=== PATIENT | female | born 1995 | race Caucasian/White ===

== ENCOUNTER 2019-04-05 22:13 | Inpatient (IN) | payer MEDICAID ==
[~2019-04-05] VITALS: Ht 152.4 cm; Wt 61.7 kg
[2019-04-05 22:04] VITALS: BP 106/56; PULSE 75; RESP 18
[2019-04-05 22:15] VITALS: Ht 152.4 cm; Wt 61.7 kg
[2019-04-05] MEDS ORDERED: PREN-93 PO (22:17)
[2019-04-05] MEDS ORDERED: TERBUTALINE 1 ML ONE (23:57)
[2019-04-06] MEDS ORDERED: LACTATED RINGER'S 1,000 ML IV ONE
[2019-04-06] MEDS ORDERED: LACTATED RINGER'S 1,000 ML IV PRN
[2019-04-06] MEDS: TERBUTALINE 1 MG/ML INJ SC PRN ×2 (00:20→02:14)
[2019-04-06] MEDS ORDERED: NIFEdipine 10 MG CAP PO ONE ×2 (02:00→04:30)
[2019-04-06] MEDS ORDERED: ACETAMINOPHEN 325 MG TAB PO PRN (04:30)
[2019-04-06] MEDS: LACTATED RINGER'S 1,000 ML IV SCH ×3 (05:01→22:43)
[2019-04-06] MEDS: BETAMET NA PHOS/AC(6 MG/ML) 2 ML INJ SYG IM SCH (06:04)
[2019-04-06] MEDS: DOCUSATE SODIUM 100 MG CAP PO SCH (09:28)
[2019-04-06] MEDS: PRENATAL VITAMIN PO SCH (09:29)
[2019-04-06] MEDS: NIFEdipine 10 MG CAP PO SCH ×3 (10:33→17:51)
--- NOTE | 2019-04-06 14:03 | CONS ---
Assessment/Plan Assessment/Plan Assessment/Plan (Daily) I have explained to the mother about problems related to prematurity, low birthweight, survival greater than 98%, long-term risk for hearing and neurodevelopmental problems in view of prematurity and low birthweight, respiratory distress, oxygen therapy, respiratory support as clinically indicated, apnea of prematurity, jaundice, phototherapy, feeding problems with intolerance, necrotizing enterocolitis, gastroesophageal reflux, general treatment plan and general procedures done in NICU and answered mother's questions and addressed her concerns. I also explained her the importance of breastmilk in premature baby nutrition. Thank you very much for allowing me to take part in the care of this patient, will follow the mom and the baby as needed I have spent 25 to 30 minutes in reviewing the mother's chart, coordinating the care with ancillary personnel, talking to the mother and preparing the consult note. Most of the time spent in talking to the mother and answering her questions about premature babies in NICU. Consultation Date/Type/Reason Admit Date/Time Apr 06, 2019 at 04:08 Date of Consultation: Apr 06, 2019 Type of Consult consult in view of labor at 34 and 3/7 weeks Reason for Consultation labor at 34 and 3/7 weeks. Mom is 23-year-old, 4, para 1, 2, and is on Procardia for labor and given 1 dose of betamethasone so far with the second 1 to be given soon. She has intermittent contractions. EDC 05/14/2019. Gestational age by dates is 34 and 4/7 weeks. Date/Time of Note DATE: 04/06/19 TIME: 13:57 Past Medical History Home Meds Reported Medications Vit No.124/Iron/FA ( Vitamin Tablet) 1 Each Tablet, 1 EACH PO, TAB 04/05/19 Medications Current Medications Terbutaline Sulfate (Brethine) 0.25 mg PRN PRN SC CONTRACTIONS Last administered on 04/06/19at 02:14; Admin Dose 0.25 MG; Start 04/06/19 at 00:00 Lactated Ringer's 1,000 ml @ 125 mls/hr Q8H IV Last administered on 04/06/19at 05:01; Admin Dose 125 MLS/HR; Start 04/06/19 at 04:13 Betamethasone Acet/Betameth SodPhos (Celestone Soluspan) 12 mg Q24H IM Last administered on 04/06/19at 06:04; Admin Dose 12 MG; Start 04/06/19 at 06:00; Stop 04/07/19 at 06:01 Prenat Multivit/ [place]/Iron/Folic Ac () 1 tab DAILY PO Last administered on 04/06/19at 09:29; Admin Dose 1 TAB; Start 04/06/19 at 09:00 Docusate Sodium (Colace) 100 mg DAILY PO Last administered on 04/06/19at 09:28; Admin Dose 100 MG; Start 04/06/19 at 09:00 Acetaminophen (Tylenol Tab) 650 mg Q4H PRN PO .PAIN OR TEMP; Start 04/06/19 at 04:30 Nifedipine (Procardia) 20 mg Q6 PO ; Start 04/06/19 at 18:00 Allergies: Coded Allergies: No Known Allergy (Unverified , 04/05/19) Social History Smoking Status: Never smoker Exam/Review of Systems Exam Vitals Vital Signs Date Temp Pulse Resp B/P (MAP) Pulse Ox O2 O2 Flow FiO2 Time Delivery Rate 04/05/19 98.0 75 18 106/56 Room Air 22:04 (73) Intake and Output 04/05/19 04/05/19 04/06/19 1515:00 23:00 07:00 IntakeIntake Total 2000 ml OutputOutput Total 400 ml BalanceBalance 1600 ml Results Result Diagram: 04/06/19 0505 Results 24hrs Laboratory Tests Test 04/05/19 22:30 04/06/19 05:05 04/06/19 07:08 Urine Color YELLOW Urine Clarity CLEAR Urine pH 6.0 Urine Specific [place] 1.018 Urine Ketones NEGATIVE Urine Nitrite NEGATIVE Urine Bilirubin NEGATIVE Urine Urobilinogen NEGATIVE Urine Leukocyte Esterase NEGATIVE Urine Hemoglobin NEGATIVE Urine Glucose NEGATIVE Urine Total Protein NEGATIVE White Blood Count 9.1 Red Blood Count 3.65 L Hemoglobin 9.3 L Hematocrit 29.3 L Mean Corpuscular Volume 80.3 L Mean Corpuscular Hemoglobin 25.5 L Mean Corpuscular 31.7 L Hemoglobin Concent Red Cell Distribution Width 15.5 H Platelet Count 161 Mean Platelet Volume 11.3 H Immature Granulocytes % 0.800 H Neutrophils % 70.4 Lymphocytes % 22.2 Monocytes % 6.0 Eosinophils % 0.3 Basophils % 0.3 Nucleated Red Blood Cells % 0.0 Immature Granulocytes # 0.070 H Neutrophils # 6.4 Lymphocytes # 2.0 Monocytes # 0.5 Eosinophils # 0.0 Basophils # 0.0 Nucleated Red Blood Cells # 0.0 Lab Scanned Report REFERENCE LAB Medications Medication Current Medications Terbutaline Sulfate (Brethine) 0.25 mg PRN PRN SC CONTRACTIONS Last administ ered on 04/06/19at 02:14; Admin Dose 0.25 MG; Start 04/06/19 at 00:00 Lactated Ringer's 1,000 ml @ 125 mls/hr Q8H IV Last administered on 04/06/19at 05:01; Admin Dose 125 MLS/HR; Start 04/06/19 at 04:13 Betamethasone Acet/Betameth SodPhos (Celestone Soluspan) 12 mg Q24H IM Last administered on 04/06/19at 06:04; Admin Dose 12 MG; Start 04/06/19 at 06:00; Stop 04/07/19 at 06:01 Prenat Multivit/ [place]/Iron/Folic Ac () 1 tab DAILY PO Last administered on 04/06/19at 09:29; Admin Dose 1 TAB; Start 04/06/19 at 09:00 Docusate Sodium (Colace) 100 mg DAILY PO Last administered on 04/06/19at 09:28; Admin Dose 100 MG; Start 04/06/19 at 09:00 Acetaminophen (Tylenol Tab) 650 mg Q4H PRN PO .PAIN OR TEMP; Start 04/06/19 at 04:30 Nifedipine (Procardia) 20 mg Q6 PO ; Start 04/06/19 at 18:00 ROBERT ANDREWS MD Apr 06, 2019 14:03
--- NOTE | 2019-04-06 15:27 | HP ---
Date/Time of Note Date/Time of Note DATE: 04/06/19 TIME: 15:22 OB - History Hx of Present Free Text/Dictation 23 years old -1-1-2 with single intrauterine at 34 weeks and 4 days with a BLANQUITA of 05/14/2019 complaining of uterine contractions. She has a history of delivery at 36 weeks in previous . She initially observed in triage, IV fluid and 1 dose of terbutaline given. She continued to have uterine contractions. She states good movement. She denies nausea, vomiting, shortness of breath, chest pain, headache, visual changes, vaginal bleeding or LOF. Chief Complaint: Uterine contractions Estimated Due Date: May 14, 2019 : 4 Para: 2 Spontaneous : 1 Therapeutic : 0 Care: Good Care Medical Complications: None Past Family/Social History * Past Medical, Surgical, Family and Obstetric Histories reviewed from [facility] art. Blood Type: O+ Rubella: immune RPR/VDRL: Negative HBsAG: Negative OB Admission Exam Vital Signs Vital Signs Vital Signs Date Temp Pulse Resp B/P (MAP) Pulse Ox O2 O2 Flow FiO2 Time Delivery Rate 04/05/19 98.0 75 18 106/56 Room Air 22:04 (73) Physical Exam HEENT: WNL Heart: Rhythm Normal Lungs: Clear Abdomen: WNL Extremities: Normal Reflexes: Normal Cervical Dilatation: 1cm Effacement: 50% Station: -2 Membranes: Intact Heart Rate: 130's Accelerations: Accelerations Present Decelerations: No Decelerations Varibility: Moderate Contractions on Admission: < 5 Minutes Apart Intensity: Mild Last 72 hours Lab Results CBC & BMP 04/06/19 05:05 OB Assessment/Plan Other plan: 23 years old -1-1-2 with single intrauterine at 34 weeks and 4 days with threatened PTL -FHR: No sign of metabolic acidosis- Category I -Continuous EFM, toco -CBC, blood type and screen as noted above -Urinalysis and urine culture -Rectovaginal-GBS culture -Procardia 20 mg every 6 hours p.o. -Betamethasone 12 mg IM daily x2 -Please see the orders -O+/Rubella: Immune -Neonatology consult Plan of care discussed in detail with patient. She expressed understanding. All of her questions answered. JOSE MIGUEL DIAZ Apr 06, 2019 15:27
[2019-04-07] MEDS: NIFEdipine 10 MG CAP PO SCH ×4 (00:46→17:57)
[2019-04-07] MEDS: BETAMET NA PHOS/AC(6 MG/ML) 2 ML INJ SYG IM SCH (05:51)
[2019-04-07] MEDS: LACTATED RINGER'S 1,000 ML IV SCH ×3 (05:57→17:08)
[2019-04-07] MEDS ORDERED: LACTATED RINGER'S 1,000 ML IV ONE (08:30)
[2019-04-07] MEDS: DOCUSATE SODIUM 100 MG CAP PO SCH (09:04)
[2019-04-07] MEDS: PRENATAL VITAMIN PO SCH (09:04)
--- NOTE | 2019-04-07 14:47 | QN ---
Documentation Comment I was called today by RN regarding patient have contractions every 4 to 5 minutes. Apparently last night nifedipine dose was not given due to blood pressure was running low. Patient was advised to have IV fluid bolus and that seemed to help with her contractions. Patient reports had only 2 contractions this morning after she received full fluid bolus. She denies any leaking of fluid, vaginal bleeding or decreased movement. Denies any other complaint.She denies any urinary symptoms Abdomen: Soft, gravid, fundal height consider gestational age, no tenderness, no rebound tenderness, no guarding or rigidity NST: Category 1 Occasional rare contraction noted on the monitor Previous contractions were more frequent. Patient feels improvement. Blood pressures now in the range of 100 through 40s. UA pending Assessment: IUP at 34 weeks and 5 days History of labor status post terbutaline and was on nifedipine orally. Had contractions more frequent after missed last night nifedipine. UA pending. Cannot rule out UTI Follow-up with UA and urine culture Continue fluid hydration Expectant management NST every shift ROOPA LANDA MD Apr 07, 2019 14:47
[2019-04-08] MEDS: NIFEdipine 10 MG CAP PO SCH ×4 (00:13→11:32)
[2019-04-08] MEDS: LACTATED RINGER'S 1,000 ML IV SCH ×2 (02:05→13:57)
[2019-04-08] MEDS: PRENATAL VITAMIN PO SCH (09:13)
[2019-04-08] MEDS: DOCUSATE SODIUM 100 MG CAP PO SCH (09:13)
--- NOTE | 2019-04-08 13:49 | PD.PPDC ---
[employer] Discharge Instruction Diagnosis [id number] Final Diagnosis: Ibxaq8y IUP 34w5d PTL borderline oligohydramnious Condition [id number] Patient Condition: [id number] Good Diet [id number] Diet: [id number] Resume Regular Diet Activity/Restrictions [id number] Activity: [id number] Bedrest [id number] Restrictions: Gnctn0s No Exercising No Lifting No Driving Minimize Walking Minimize Stair-climbing No Sexual Activity Nothing in the Vagina No [place] No Tampons, douche Follow-up Follow-up with Physician: 1, Week/Weeks Return to clinic for Comment: RTH prn with routine labor instructions AMIE FARRAR MD Apr 08, 2019 13:49
--- NOTE | 2019-04-08 13:56 | DS ---
Date/Time of Note Date/Time of Note DATE: 04/08/19 TIME: 13:53 Obstetrical Discharge Record Final Diagnosis Final Diagnosis: not delivered Other Final Diagnosis PTL resolved IUP 3w5d borderline oligohydramnious will repeat prior to be discharged Complications Labor Augmentation: No Induction: No Rupture of Membranes: No Condition on Discharge Physical Assessment Last Vitals: vss afebrile Voiding: Yes Bowel Movement: Yes Breast: Soft, non-tender Fundus: Other (, no uc's) Abdomen and Incision: EFM no significant uterine activities Episiotomy: n/a Calf Tenderness: No Patient Condition: Stable AMIE FARRAR MD Apr 08, 2019 13:56
== END 2019-04-08 15:25 | disposition home or self-care (01) | DRG 833 ==
LOC: OBT 22:13 → L-D 22:14 → OBT 04-06 04:08 → L-D 04-06 04:08 → PP1 04-06 05:22
PROVIDERS: ADMIT Obstetrics & Gynecology; ATTEND Obstetrics & Gynecology
DX: O60.03 Preterm labor without delivery, third trimester (principal); Z3A.34 34 weeks gestation of pregnancy
CPT/HCPCS: 36415; 76815; 76818; 81003; 85025; 86850; 86900; 86901; 87081; 96360; 96361; 96372; G0463; J0702; J3105; J7120

== ENCOUNTER 2019-04-21 04:15 | Outpatient (CLI) | payer MEDICAID ==
[~2019-04-21] VITALS: Ht 152.4 cm; Wt 62.1 kg
[~2019-04-21 04:15] MED LIST: PREN-93 PO
[2019-04-21] MEDS ORDERED: TERBUTALINE 1 MG/ML INJ SC ONE (08:30)
[2019-04-21] MEDS ORDERED: TERBUTALINE 1 ML ONE (08:31)
[2019-04-21] MEDS ORDERED: LACTATED RINGER'S 1,000 ML IV SCH (09:00)
--- NOTE | 2019-04-21 10:23 | TRIAGE ---
OB Triage Datetime Report Generated by CPN: 04/21/2019 10:23 Datetime: 04/21/2019 09:46 Labor Evaluation Frequency: 8-15 Monitor Mode: External Duration (sec)2399: 50-70 Quality: Mild Pattern: Normal: <= 5 Contractions in 10 Minutes Resting Tone [place]: Relaxed Heart Rate FHR Baseline Rate: 125 Monitor Mode: External US Variability: Moderate 6-25 bpm Accelerations: 10X10 Decelerations: None Category: Category I Pain Assessment Pain Scale: 1 Pain Presence: Intermittent Pain Type: Cramping Pain Location: Abdomen Pain Goal: 3 Pain Relief Measures: Comfort Measures Pain Assessment Comments: states barely feels uc's Datetime: 04/21/2019 09:27 Stage of : OB Triage Datetime: 04/21/2019 08:42 Stage of : OB Triage Datetime: 04/21/2019 08:26 Stage of : OB Triage Datetime: 04/21/2019 08:22 Labor Evaluation Frequency: 6-7 Monitor Mode: External Duration (sec)2399: 60-80 Quality: Mild Pattern: Normal: <= 5 Contractions in 10 Minutes Resting Tone [place]: Relaxed Heart Rate FHR Baseline Rate: 125 Monitor Mode: External US Variability: Moderate 6-25 bpm Accelerations: 10X10 Decelerations: None Category: Category I Pain Assessment Pain Scale: 4 Pain Presence: Intermittent Pain Type: Cramping Pain Location: Abdomen Pain Goal: 3 Pain Relief Measures: Comfort Measures Datetime: 04/21/2019 06:05 Labor Evaluation Frequency: 4-6 Monitor Mode: External Duration (sec)2399: 60-90 Quality: Mild Pattern: Normal: <= 5 Contractions in 10 Minutes Resting Tone [place]: Relaxed Heart Rate FHR Baseline Rate: 125 Monitor Mode: External US Variability: Moderate 6-25 bpm Accelerations: 15X15 Decelerations: None Category: Category I Datetime: 04/21/2019 05:10 Labor Evaluation Frequency: 3-6 Monitor Mode: External Duration (sec)2399: 50-90 Quality: Moderate Pattern: Normal: <= 5 Contractions in 10 Minutes Resting Tone [place]: Relaxed Heart Rate FHR Baseline Rate: 135 Monitor Mode: External US Variability: Moderate 6-25 bpm Accelerations: 15X15 Decelerations: Late; Variable Category: Category II Datetime: 04/21/2019 04:50 Vaginal Exam Dilatation (cms): 1.0 Effacement (%): 50 Station: -3 Exam By: JUAN DIEGO Mcdonald RN Membrane Status: Intact Cervix, Consistency: Soft Cervix, Position: Posterior Datetime: 04/21/2019 04:46 Time of Arrival: 04/21/2019 04:10 EGA: 36.5 Arrived By: Wheelchair Arrived From: Home Chief Complaint: c/o uc's and yellow/white vaginal discharge Movement: Present Contractions: Regular Time Contractions Began: 04/20/2019 09:00 Contractions: 5 minutes apart Rupture of Membranes: Denies Vaginal Bleeding: None Vaginal Discharge: Present Recent Sexual Intercouse: Denies Abdominal Trauma: Not Applicable Patient Complaints: Contractions Time Provider Notified: 04/21/2019 04:45 Provider Notified: ARDALAN Initial Plan: EFM, SVE, CALL MD Datetime: 04/21/2019 04:45 Stage of : OB Triage Datetime: 04/21/2019 04:35 Stage of : OB Triage Maternal Assessment Level of Consciousness: Keenly Alert, Responsive DTR's/Clonus: DTRs 2+; No Clonus Headache: Denies Blurred Vision: No Respiratory Effort: Unlabored; Regular Rhythm; Equal Expansion Breath Sounds, Left: Clear and Equal Breath Sounds, Right: Clear and Equal Nausea/Vomiting: Denies RUQ Epigastric Pain: Denies Facial Edema: None Temperature Route: Oral Fall Risk Assessment History of Falling: (0) No Secondary Diagnosis: (0) No Ambulatory Aid: (0) Bedrest/Nurse Assist IV Therapy: (0) No Gait: (0) Normal/Bedrest/Immobile Mental Status: (0) Oriented to Own Ability Fall Score: 0 Fall Risk Score Definition: No Risk: No action required Pain Assessment Pain Scale: 5 Pain Presence: Intermittent Pain Type: Contraction Pain Location: Abdomen; Back Datetime: 04/21/2019 04:34 Stage of : OB Triage Monitor Mode: External Monitor Mode: External US Datetime: 04/08/2019 15:25 Stage of : Antepartum Pain Presence: None/Denies Datetime: 04/08/2019 14:03 Stage of : Antepartum Maternal Assessment Level of Consciousness: Keenly Alert, Responsive Headache: Denies Nausea/Vomiting: Denies RUQ Epigastric Pain: Denies Pain Presence: None/Denies Membrane Status: Intact Vaginal Bleeding: None Datetime: 04/08/2019 11:54 Resting Tone [place]: Relaxed Heart Rate FHR Baseline Rate: 135 Monitor Mode: External US Variability: Moderate 6-25 bpm Accelerations: 15X15 Decelerations: None Comments: dr. doyle the laborist rvwd. strip from yesterday to current. orders bpp w/ ana, and if wnl d/c home w/ prescription for procardia Membrane Status: Intact Vaginal Bleeding: None Datetime: 04/08/2019 11:00 Stage of : Antepartum Maternal Assessment Level of Consciousness: Keenly Alert, Responsive Headache: Denies Nausea/Vomiting: Denies RUQ Epigastric Pain: Denies Labor Evaluation Frequency: 0/hr Monitor Mode: External Heart Rate FHR Baseline Rate: 140 Monitor Mode: External US Variability: Moderate 6-25 bpm Accelerations: 15X15 Decelerations: None Pain Assessment Pain Scale: 0 Pain Presence: None/Denies Membrane Status: Intact Vaginal Bleeding: None Datetime: 04/08/2019 10:53 Stage of : Antepartum Maternal Assessment Level of Consciousness: Keenly Alert, Responsive Headache: Denies Blurred Vision: No Respiratory Effort: Unlabored Nausea/Vomiting: Denies RUQ Epigastric Pain: Denies Pain Presence: None/Denies Membrane Status: Intact Vaginal Bleeding: None Datetime: 04/08/2019 10:13 Stage of : Antepartum Maternal Assessment Level of Consciousness: Keenly Alert, Responsive Headache: Denies Nausea/Vomiting: Denies RUQ Epigastric Pain: Denies Labor Evaluation Frequency: occassional Monitor Mode: External Duration (sec)2399: 50 Quality: Mild Resting Tone [place]: Relaxed Heart Rate FHR Baseline Rate: 140 Monitor Mode: External US Variability: Moderate 6-25 bpm Accelerations: 15X15 Decelerations: None Pain Assessment Pain Scale: 0 Pain Presence: None/Denies Membrane Status: Intact Vaginal Bleeding: None Datetime: 04/08/2019 09:25 Labor Evaluation Frequency: 0/hr Monitor Mode: External Heart Rate FHR Baseline Rate: 135 Monitor Mode: External US Variability: Moderate 6-25 bpm Accelerations: 15X15 Decelerations: None Datetime: 04/08/2019 09:12 Stage of : Antepartum Datetime: 04/08/2019 09:10 Monitor Mode: External Resting Tone [place]: Relaxed Monitor Mode: External US Pain Presence: None/Denies Datetime: 04/08/2019 08:46 Stage of : Antepartum Labor Evaluation Frequency: 0/hr Monitor Mode: External Heart Rate FHR Baseline Rate: 140 Monitor Mode: External US Variability: Moderate 6-25 bpm Accelerations: 15X15 Decelerations: None Datetime: 04/08/2019 07:43 Maternal Assessment Level of Consciousness: Keenly Alert, Responsive DTR's/Clonus: DTRs 2+ Headache: Denies Blurred Vision: No Respiratory Effort: Unlabored Breath Sounds, Left: Clear and Equal Breath Sounds, Right: Clear and Equal Nausea/Vomiting: Denies RUQ Epigastric Pain: Denies Quality: Mild Resting Tone [place]: Relaxed Pain Assessment Pain Scale: 0 Pain Presence: Intermittent Pain Type: Contraction Pain Location: Abdomen Datetime: 04/08/2019 07:27 Stage of : Antepartum Temperature Route: Oral Resting Tone [place]: Relaxed Membrane Status: Intact (Annotations: pt. denies lof, srom, or bleedinfg at this time) Datetime: 04/08/2019 07:25 Maternal Assessment Level of Consciousness: Keenly Alert, Responsive Headache: Denies Blurred Vision: No Nausea/Vomiting: Denies RUQ Epigastric Pain: Denies Resting Tone [place]: Relaxed Datetime: 04/08/2019 07:24 Stage of : Antepartum Datetime: 04/08/2019 06:51 Labor Evaluation Frequency: NONE Monitor Mode: External Resting Tone [place]: Relaxed Contraction Comments: PT DENIES FEELING UC'S Heart Rate FHR Baseline Rate: 130 Monitor Mode: External US Variability: Moderate 6-25 bpm Accelerations: 15X15 Decelerations: None Category: Category I Datetime: 04/08/2019 06:23 Vaginal Exam Dilatation (cms): 0.5 Effacement (%): 40 Station: -3 Exam By: JENNY Cervix, Consistency: Moderate Cervix, Position: Posterior Datetime: 04/08/2019 06:05 Stage of : Antepartum Datetime: 04/08/2019 06:00 Labor Evaluation Frequency: X7 Monitor Mode: External Duration (sec)2399: 60-80 Quality: Mild Resting Tone [place]: Relaxed Contraction Comments: PT DEINES FEELING ANY UC'S Heart Rate FHR Baseline Rate: 130 Monitor Mode: External US Variability: Moderate 6-25 bpm Accelerations: 15X15 Decelerations: Late Category: Category II Pain Presence: None/Denies Pain Type: N/A Datetime: 04/08/2019 05:00 Labor Evaluation Frequency: X7 Monitor Mode: External Duration (sec)2399: 40-70 Quality: Mild Resting Tone [place]: Relaxed Heart Rate FHR Baseline Rate: 125 Monitor Mode: External US Variability: Moderate 6-25 bpm Accelerations: 15X15 Decelerations: None Category: Category I Pain Presence: None/Denies Pain Type: N/A Datetime: 04/08/2019 04:02 Pain Presence: None/Denies Pain Type: N/A Datetime: 04/08/2019 04:00 Labor Evaluation Frequency: X10 Monitor Mode: External Duration (sec)2399: 50-100 Quality: Mild Resting Tone [place]: Relaxed Contraction Comments: PT DENIES FEELING UC'S Accelerations: 10X10 Pain Presence: None/Denies Pain Type: N/A Datetime: 04/08/2019 03:00 Labor Evaluation Frequency: X5 Monitor Mode: External Duration (sec)2399: 60-80 Quality: Mild Resting Tone [place]: Relaxed Heart Rate FHR Baseline Rate: 130 Monitor Mode: External US Variability: Moderate 6-25 bpm Accelerations: 15X15 Decelerations: None Category: Category I Pain Presence: None/Denies Pain Type: N/A Pain Assessment Comments: PT SLEEPING WITH EVEN UNLABORED BREATHING Datetime: 04/08/2019 02:03 Monitor Mode: External Monitor Mode: External US Datetime: 04/08/2019 02:00 Labor Evaluation Frequency: 2-6 Monitor Mode: External Duration (sec)2399: 60-100 Quality: Mild Resting Tone [place]: Relaxed Contraction Comments: pt denies uc's Heart Rate FHR Baseline Rate: 135 Monitor Mode: External US Variability: Moderate 6-25 bpm Accelerations: 15X15 Decelerations: None Category: Category I Pain Presence: None/Denies Pain Type: N/A Datetime: 04/08/2019 01:41 Contraction Comments: PT DENIES FEELING UC'S Datetime: 04/08/2019 01:00 Labor Evaluation Frequency: X3 Monitor Mode: External Duration (sec)2399: 70-90 Quality: Mild Resting Tone [place]: Relaxed Heart Rate FHR Baseline Rate: 130 Monitor Mode: External US Variability: Moderate 6-25 bpm Accelerations: 15X15 Decelerations: None Category: Category I Pain Presence: None/Denies Pain Type: N/A Datetime: 04/08/2019 00:13 Stage of : Antepartum Datetime: 04/08/2019 00:04 Stage of : Antepartum Temperature Route: Oral Contraction Comments: PT STATES SHE FEELS AN OCCASSIONAL UC. sHE ASKED IF THAT WAS NORMAL. RN INF ORMED PT THAT AN OCCASSIONAL CONTRACTION IS OKAY. Comments: PT STATES + FM Pain Presence: None/Denies Pain Type: N/A Membrane Status: Intact Vaginal Bleeding: None Datetime: 04/07/2019 23:58 Stage of : Antepartum Datetime: 04/07/2019 23:43 Stage of : Antepartum Labor Evaluation Frequency: 2-11 Monitor Mode: External Duration (sec)2399: 50-70 Quality: Mild Pattern: Normal: <= 5 Contractions in 10 Minutes Resting Tone [place]: Relaxed Heart Rate FHR Baseline Rate: 125 Monitor Mode: External US Variability: Moderate 6-25 bpm Accelerations: 15X15 Decelerations: None Category: Category I Datetime: 04/07/2019 23:20 Stage of : Antepartum Datetime: 04/07/2019 23:00 Labor Evaluation Frequency: NONE Monitor Mode: External Resting Tone [place]: Relaxed Heart Rate FHR Baseline Rate: 130 Monitor Mode: External US Variability: Moderate 6-25 bpm Accelerations: 15X15 Decelerations: None Category: Category I Pain Presence: None/Denies Pain Type: N/A Datetime: 04/07/2019 22:40 Contraction Comments: BELT REMOVED Comments: BELT REMOVED. BELLY BAND APPLIED. Datetime: 04/07/2019 22:29 Monitor Mode: External US Datetime: 04/07/2019 22:00 Labor Evaluation Frequency: NONE Monitor Mode: External Resting Tone [place]: Relaxed Heart Rate FHR Baseline Rate: 135 Monitor Mode: External US Variability: Moderate 6-25 bpm Accelerations: 15X15 Decelerations: None Category: Category I Pain Presence: None/Denies Pain Type: N/A Datetime: 04/07/2019 21:30 Monitor Mode: External US Datetime: 04/07/2019 21:00 Labor Evaluation Frequency: NONE Monitor Mode: External Resting Tone [place]: Relaxed Heart Rate FHR Baseline Rate: 135 Monitor Mode: External US Variability: Moderate 6-25 bpm Accelerations: 15X15 Decelerations: None Category: Category I Datetime: 04/07/2019 20:21 Assessment Type: Ongoing Assessment Maternal Assessment Level of Consciousness: Keenly Alert, Responsive DTR's/Clonus: DTRs 2+; No Clonus Headache: Denies Blurred Vision: No Respiratory Effort: Unlabored; Regular Rhythm; Equal Expansion Breath Sounds, Left: Clear and Equal Breath Sounds, Right: Clear and Equal Nausea/Vomiting: Denies RUQ Epigastric Pain: Denies Lower Extremities Edema: None Degree: None Upper Extremities Edema: None Degree: None Facial Edema: None Fall Risk Assessment History of Falling: (0) No Secondary Diagnosis: (0) No Ambulatory Aid: (0) Bedrest/Nurse Assist IV Therapy: (0) No Gait: (0) Normal/Bedrest/Immobile Mental Status: (0) Oriented to Own Ability Fall Score: 0 Fall Risk Score Definition: No Risk: No action required Datetime: 04/07/2019 20:12 Stage of : Antepartum Temperature Route: Oral Monitor Mode: External Contraction Comments: Pt denies cramping Monitor Mode: External US Comments: Pt states + FM Pain Presence: None/Denies Pain Type: N/A Membrane Status: Intact Vaginal Bleeding: None Datetime: 04/07/2019 20:00 Stage of : OB Triage Labor Evaluation Frequency: X1 Monitor Mode: External Duration (sec)2399: 60 Quality: Mild Resting Tone [place]: Relaxed Heart Rate FHR Baseline Rate: 130 Monitor Mode: External US Variability: Moderate 6-25 bpm Accelerations: 15X15 Decelerations: None Category: Category I Pain Presence: None/Denies Pain Type: N/A Datetime: 04/07/2019 19:00 Stage of : Antepartum Labor Evaluation Frequency: x1 Monitor Mode: External Duration (sec)2399: 60 Quality: Mild Pattern: Normal: <= 5 Contractions in 10 Minutes Resting Tone [place]: Relaxed Heart Rate FHR Baseline Rate: 130 Monitor Mode: External US FHR Baseline Changes: No Baseline Change Variability: Moderate 6-25 bpm Accelerations: 15X15 Decelerations: Variable Pain Assessment Pain Scale: 0 Pain Goal: 1 Datetime: 04/07/2019 18:00 Stage of : Antepartum Labor Evaluation Frequency: x1 Monitor Mode: External Duration (sec)2399: 60 Quality: Mild Pattern: Normal: <= 5 Contractions in 10 Minutes Resting Tone [place]: Relaxed Heart Rate FHR Baseline Rate: 130 Monitor Mode: External US FHR Baseline Changes: No Baseline Change Variability: Moderate 6-25 bpm Accelerations: 15X15 Decelerations: Variable Pain Assessment Pain Scale: 0 Pain Goal: 1 Datetime: 04/07/2019 17:00 Stage of : Antepartum Labor Evaluation Frequency: x1 Monitor Mode: External Duration (sec)2399: 60 Quality: Mild Pattern: Normal: <= 5 Contractions in 10 Minutes Resting Tone [place]: Relaxed Heart Rate FHR Baseline Rate: 130 Monitor Mode: External US FHR Baseline Changes: No Baseline Change Variability: Moderate 6-25 bpm Accelerations: 15X15 Decelerations: Variable Pain Assessment Pain Scale: 0 Pain Goal: 1 Datetime: 04/07/2019 16:00 Stage of : Antepartum Labor Evaluation Frequency: 0 Monitor Mode: External Resting Tone [place]: Relaxed Heart Rate FHR Baseline Rate: 130 Monitor Mode: External US FHR Baseline Changes: No Baseline Change Variability: Moderate 6-25 bpm Accelerations: 15X15 Decelerations: Variable Pain Assessment Pain Scale: 0 Pain Goal: 1 Datetime: 04/07/2019 15:45 Stage of : Antepartum Temperature Route: Oral Datetime: 04/07/2019 15:00 Stage of : Antepartum Labor Evaluation Frequency: x1 Monitor Mode: External Duration (sec)2399: 50 Quality: Mild Pattern: Normal: <= 5 Contractions in 10 Minutes Heart Rate FHR Baseline Rate: 130 Monitor Mode: External US FHR Baseline Changes: No Baseline Change Variability: Moderate 6-25 bpm Accelerations: 15X15 Decelerations: Variable Pain Assessment Pain Scale: 0 Pain Goal: 1 Datetime: 04/07/2019 14:00 Stage of : Antepartum Labor Evaluation Frequency: x1 Monitor Mode: External Duration (sec)2399: 50 Quality: Mild Pattern: Normal: <= 5 Contractions in 10 Minutes Heart Rate FHR Baseline Rate: 130 Monitor Mode: External US FHR Baseline Changes: No Baseline Change Variability: Moderate 6-25 bpm Accelerations: 15X15 Decelerations: Variable Pain Assessment Pain Scale: 1 Pain Presence: Intermittent Pain Type: Cramping Pain Location: Abdomen; Back Pain Goal: 1 Pain Relief Measures: Comfort Measures Datetime: 04/07/2019 13:00 Labor Evaluation Frequency: x1 Monitor Mode: External Duration (sec)2399: 50 Quality: Mild Pattern: Normal: <= 5 Contractions in 10 Minutes Heart Rate FHR Baseline Rate: 120 Monitor Mode: External US FHR Baseline Changes: No Baseline Change Variability: Moderate 6-25 bpm Accelerations: 15X15 Decelerations: Variable Pain Assessment Pain Scale: 1 Pain Presence: Intermittent Pain Type: Cramping Pain Location: Abdomen; Back Pain Goal: 1 Pain Relief Measures: Comfort Measures Datetime: 04/07/2019 12:16 Stage of : Antepartum Temperature Route: Oral Datetime: 04/07/2019 12:00 Labor Evaluation Frequency: 10 Monitor Mode: External Duration (sec)2399: 40-60 Quality: Mild Pattern: Normal: <= 5 Contractions in 10 Minutes Heart Rate FHR Baseline Rate: 120 Monitor Mode: External US FHR Baseline Changes: No Baseline Change Variability: Moderate 6-25 bpm Accelerations: 15X15 Decelerations: Variable Pain Assessment Pain Scale: 2 Pain Presence: Intermittent Pain Type: Cramping Pain Location: Abdomen; Back Pain Goal: 1 Pain Relief Measures: Comfort Measures Datetime: 04/07/2019 11:45 Stage of : Antepartum Datetime: 04/07/2019 11:00 Labor Evaluation Frequency: 10 Monitor Mode: External Duration (sec)2399: 40-60 Quality: Mild Pattern: Normal: <= 5 Contractions in 10 Minutes Heart Rate FHR Baseline Rate: 120 Monitor Mode: External US FHR Baseline Changes: No Baseline Change Variability: Moderate 6-25 bpm Accelerations: 15X15 Decelerations: Variable Pain Assessment Pain Scale: 2 Pain Presence: Intermittent Pain Type: Cramping Pain Location: Abdomen; Back Pain Goal: 1 Pain Relief Measures: Comfort Measures Datetime: 04/07/2019 10:00 Labor Evaluation Frequency: 6 Monitor Mode: External Duration (sec)2399: 40-60 Quality: Mild Pattern: Normal: <= 5 Contractions in 10 Minutes Monitor Mode: External US FHR Baseline Changes: No Baseline Change Variability: Moderate 6-25 bpm Accelerations: 15X15 Decelerations: Variable Pain Assessment Pain Scale: 3 Pain Presence: Intermittent Pain Type: Cramping Pain Location: Abdomen; Back Pain Goal: 1 Pain Relief Measures: Comfort Measures Datetime: 04/07/2019 09:00 Labor Evaluation Frequency: 7 Monitor Mode: External Duration (sec)2399: 40-60 Quality: Mild Pattern: Normal: <= 5 Contractions in 10 Minutes Heart Rate FHR Baseline Rate: 135 Monitor Mode: External US FHR Baseline Changes: No Baseline Change Variability: Moderate 6-25 bpm Accelerations: 15X15 Decelerations: Variable Pain Assessment Pain Scale: 4 Pain Presence: Intermittent Pain Type: Cramping Pain Location: Abdomen; Back Pain Goal: 1 Pain Relief Measures: Comfort Measures Datetime: 04/07/2019 08:07 Stage of : Antepartum Datetime: 04/07/2019 08:00 Stage of : Antepartum Maternal Assessment Level of Consciousness: Keenly Alert, Responsive DTR's/Clonus: DTRs 2+; No Clonus Headache: Denies Breath Sounds, Left: Clear and Equal Breath Sounds, Right: Clear and Equal Nausea/Vomiting: Denies RUQ Epigastric Pain: Denies Temperature Route: Oral Labor Evaluation Frequency: 6 Monitor Mode: External Duration (sec)2399: 60 Quality: Mild Pattern: Normal: <= 5 Contractions in 10 Minutes Resting Tone [place]: Relaxed Heart Rate FHR Baseline Rate: 130 Monitor Mode: External US FHR Baseline Changes: No Baseline Change Variability: Moderate 6-25 bpm Accelerations: 15X15 Decelerations: None Datetime: 04/07/2019 07:30 Assessment Type: Ongoing Assessment Maternal Assessment Level of Consciousness: Keenly Alert, Responsive DTR's/Clonus: DTRs 2+; No Clonus Headache: Denies Blurred Vision: No Respiratory Effort: Unlabored; Regular Rhythm; Equal Expansion Breath Sounds, Left: Clear and Equal Breath Sounds, Right: Clear and Equal Nausea/Vomiting: Denies RUQ Epigastric Pain: Denies Lower Extremities Edema: None Upper Extremities Edema: None Facial Edema: None Fall Risk Assessment History of Falling: (0) No Secondary Diagnosis: (0) No Ambulatory Aid: (0) Bedrest/Nurse Assist IV Therapy: (20) Yes Gait: (0) Normal/Bedrest/Immobile Mental Status: (0) Oriented to Own Ability Fall Score: 20 Fall Risk Score Definition: No Risk: No action required Labor Evaluation Frequency: x4 Monitor Mode: External Duration (sec)2399: 60 Quality: Mild Pattern: Normal: <= 5 Contractions in 10 Minutes Resting Tone [place]: Relaxed Heart Rate FHR Baseline Rate: 125 Monitor Mode: External US FHR Baseline Changes: No Baseline Change Variability: Moderate 6-25 bpm Accelerations: 15X15 Decelerations: None Datetime: 04/07/2019 07:12 Stage of : Antepartum Datetime: 04/07/2019 06:37 Contraction Comments: IV BOLUS INFUSING Datetime: 04/07/2019 06:30 Labor Evaluation Frequency: X3 Monitor Mode: External Duration (sec)2399: 40-60 Quality: Mild Pattern: Normal: <= 5 Contractions in 10 Minutes Resting Tone [place]: Relaxed Contraction Comments: ABDOMEN SOFT TO PALPATATION. PT STATES SHE DOES NOT FEEL ANY OF HER CONTRACTI ONS Heart Rate FHR Baseline Rate: 130 Monitor Mode: External US Variability: Moderate 6-25 bpm Accelerations: 15X15 Decelerations: None Category: Category I Datetime: 04/07/2019 05:48 Temperature Route: Oral Pain Assessment Pain Scale: 0 Pain Presence: None/Denies Pain Goal: 0 Datetime: 04/07/2019 05:30 Labor Evaluation Frequency: x4 Monitor Mode: External Duration (sec)2399: 40-60 Quality: Mild Pattern: Normal: <= 5 Contractions in 10 Minutes Resting Tone [place]: Relaxed Contraction Comments: pt states she does not feel her contractions Heart Rate FHR Baseline Rate: 130 Monitor Mode: External US Variability: Moderate 6-25 bpm Accelerations: 15X15 Decelerations: None Category: Category I Datetime: 04/07/2019 04:30 Stage of : Antepartum Labor Evaluation Frequency: x3 Monitor Mode: External Duration (sec)2399: 40-60 Quality: Mild Pattern: Normal: <= 5 Contractions in 10 Minutes Resting Tone [place]: Relaxed Contraction Comments: pt states she does not feel any of her contractions Heart Rate FHR Baseline Rate: 120 Monitor Mode: External US Variability: Moderate 6-25 bpm Accelerations: 15X15 Decelerations: None Category: Category I Datetime: 04/07/2019 03:30 Labor Evaluation Frequency: NONE Quality: Mild Resting Tone [place]: Relaxed Contraction Comments: PT STATES SHE DOES NOT FEEL ANY CONTRACTIONS Monitor Mode: External US Variability: Moderate 6-25 bpm Accelerations: 15X15 Decelerations: None Category: Category I Comments: 135 Datetime: 04/07/2019 02:30 Labor Evaluation Frequency: none Monitor Mode: External Resting Tone [place]: Relaxed Contraction Comments: abdomen soft to palpatation; pt denies any contractions Heart Rate FHR Baseline Rate: 135 Monitor Mode: External US Variability: Moderate 6-25 bpm Accelerations: 15X15 Decelerations: None Category: Category I Datetime: 04/07/2019 01:36 Monitor Mode: External US Datetime: 04/07/2019 01:30 Labor Evaluation Frequency: none Monitor Mode: External Contraction Comments: pt states she does not feel any contractions Heart Rate FHR Baseline Rate: 130 Monitor Mode: External US Variability: Moderate 6-25 bpm Accelerations: 15X15 Decelerations: Prolonged Category: Category II Comments: deceleration resolved Datetime: 04/07/2019 00:34 Comments: variable decelaration noted with lauro of 90 bpm,lasted 2 minutes fetus went back to bl o f 120 with moderate variability,will continue monitoring. Datetime: 04/07/2019 00:30 Labor Evaluation Frequency: NONE Quality: Mild Pattern: Normal: <= 5 Contractions in 10 Minutes Resting Tone [place]: Relaxed Contraction Comments: ABDOMEN SOFT TO PALPATATION; PT STATES SHE DOES NOT FEEL ANY CONTRACTIONS Heart Rate FHR Baseline Rate: 120 Monitor Mode: External US Variability: Moderate 6-25 bpm Accelerations: 15X15 Decelerations: None Category: Category I Datetime: 04/06/2019 23:53 Temperature Route: Oral Datetime: 04/06/2019 23:30 Labor Evaluation Frequency: none Quality: Mild Contraction Comments: abdomen soft to palpatation; pt states she does not feel any contractions Heart Rate FHR Baseline Rate: 120 Monitor Mode: External US Variability: Moderate 6-25 bpm Accelerations: Prolonged Decelerations: None Datetime: 04/06/2019 22:30 Labor Evaluation Frequency: none Monitor Mode: External Quality: Mild Resting Tone [place]: Relaxed Contraction Comments: abdomen soft to palptatation; pt states she does not feel any contractions Heart Rate FHR Baseline Rate: 135 Monitor Mode: External US Variability: Moderate 6-25 bpm Accelerations: Prolonged Decelerations: None Category: Category I Datetime: 04/06/2019 21:30 Labor Evaluation Frequency: X1 Monitor Mode: External Duration (sec)2399: 50 Quality: Mild Resting Tone [place]: Relaxed Contraction Comments: PT STATES SHE DOES NOT FEEL ANY CONTRACTIONS; ABDOMEN SOFT TO PALPATATION Heart Rate FHR Baseline Rate: 130 Monitor Mode: External US Variability: Moderate 6-25 bpm Accelerations: 15X15 Decelerations: None Category: Category I Datetime: 04/06/2019 20:24 Labor Evaluation Frequency: none Monitor Mode: External Resting Tone [place]: Relaxed Contraction Comments: abdomen soft to palpatation Heart Rate FHR Baseline Rate: 130 Monitor Mode: External US Variability: Moderate 6-25 bpm Accelerations: 15X15 Decelerations: None Datetime: 04/06/2019 20:16 Assessment Type: Ongoing Assessment Maternal Assessment Level of Consciousness: Keenly Alert, Responsive DTR's/Clonus: DTRs 2+; No Clonus Headache: Denies Blurred Vision: No Respiratory Effort: Unlabored; Regular Rhythm; Equal Expansion Breath Sounds, Left: Clear and Equal Breath Sounds, Right: Clear and Equal Nausea/Vomiting: Denies RUQ Epigastric Pain: Denies Lower Extremities Edema: None Upper Extremities Edema: None Facial Edema: None Fall Risk Assessment History of Falling: (0) No Secondary Diagnosis: (0) No Ambulatory Aid: (0) Bedrest/Nurse Assist IV Therapy: (20) Yes Gait: (0) Normal/Bedrest/Immobile Mental Status: (0) Oriented to Own Ability Fall Score: 20 Fall Risk Score Definition: No Risk: No action required Datetime: 04/06/2019 20:03 Temperature Route: Oral Datetime: 04/06/2019 18:28 Maternal Assessment Level of Consciousness: Keenly Alert, Responsive Headache: Denies Blurred Vision: No Respiratory Effort: Unlabored Nausea/Vomiting: Denies RUQ Epigastric Pain: Denies Resting Tone [place]: Relaxed Pain Presence: None/Denies Datetime: 04/06/2019 18:00 Stage of : Antepartum Maternal Assessment Level of Consciousness: Keenly Alert, Responsive Headache: Denies Nausea/Vomiting: Denies RUQ Epigastric Pain: Denies Labor Evaluation Frequency: 0/hr Monitor Mode: External Heart Rate FHR Baseline Rate: 130 Monitor Mode: External US Variability: Moderate 6-25 bpm Accelerations: 15X15 Decelerations: None Pain Assessment Pain Scale: 0 Pain Presence: None/Denies Vaginal Bleeding: None Datetime: 04/06/2019 17:50 Resting Tone [place]: Relaxed Comments: pt. eating dinner w/out c/o distress Pain Presence: Intermittent Datetime: 04/06/2019 17:31 Comments: loss of contact. pt. sitting up for dinner Datetime: 04/06/2019 17:18 Resting Tone [place]: Relaxed Pain Presence: None/Denies Pain Assessment Comments: pt. reports decrease in intensity and frequency of uc's. pt. states "im b thomas" Datetime: 04/06/2019 17:07 Labor Evaluation Frequency: occassional Monitor Mode: External Duration (sec)2399: 70 Quality: Mild Heart Rate FHR Baseline Rate: 125 Monitor Mode: External US Variability: Moderate 6-25 bpm Accelerations: 15X15 Decelerations: None Datetime: 04/06/2019 16:02 Stage of : Antepartum Maternal Assessment Level of Consciousness: Keenly Alert, Responsive Headache: Denies Nausea/Vomiting: Denies RUQ Epigastric Pain: Denies Labor Evaluation Frequency: 3/hr Monitor Mode: External Duration (sec)2399: 60 Quality: Mild Heart Rate FHR Baseline Rate: 130 Monitor Mode: External US Variability: Moderate 6-25 bpm Accelerations: 15X15 Decelerations: None Vaginal Bleeding: None Datetime: 04/06/2019 15:23 Temperature Route: Oral Datetime: 04/06/2019 15:15 Stage of : Antepartum Maternal Assessment Level of Consciousness: Keenly Alert, Responsive Headache: Denies Nausea/Vomiting: Denies RUQ Epigastric Pain: Denies Labor Evaluation Frequency: 5/hr Monitor Mode: External Duration (sec)2399: 40-60 Quality: Mild Heart Rate FHR Baseline Rate: 135 Monitor Mode: External US Variability: Moderate 6-25 bpm Accelerations: 15X15 Decelerations: None Pain Assessment Pain Scale: 5 Pain Presence: Intermittent Pain Type: Contraction Pain Location: Abdomen; Back Pain Relief Measures: Comfort Measures Membrane Status: Intact (Annotations: pt. denies lof or srom) Vaginal Bleeding: None (Annotations: pt. denies at this time) Datetime: 04/06/2019 14:56 Monitor Mode: External Datetime: 04/06/2019 14:53 Maternal Assessment Level of Consciousness: Keenly Alert, Responsive Headache: Denies Nausea/Vomiting: Denies RUQ Epigastric Pain: Denies Labor Evaluation Frequency: Occasional Monitor Mode: External Duration (sec)2399: 40-60 Quality: Mild Resting Tone [place]: Relaxed Heart Rate FHR Baseline Rate: 135 Monitor Mode: External US Variability: Moderate 6-25 bpm Accelerations: 15X15 Decelerations: None Pain Assessment Pain Scale: 5 Pain Presence: Intermittent Pain Type: Cramping Pain Location: Abdomen; Back Pain Relief Measures: Comfort Measures Datetime: 04/06/2019 14:02 Maternal Assessment Level of Consciousness: Keenly Alert, Responsive Headache: Denies Blurred Vision: No Respiratory Effort: Unlabored Nausea/Vomiting: Denies RUQ Epigastric Pain: Denies Labor Evaluation Frequency: 0/hr Monitor Mode: External Heart Rate FHR Baseline Rate: 125 Monitor Mode: External US Variability: Moderate 6-25 bpm Accelerations: 15X15 Decelerations: None Datetime: 04/06/2019 13:05 Maternal Assessment Level of Consciousness: Keenly Alert, Responsive Headache: Denies Blurred Vision: No Respiratory Effort: Unlabored Nausea/Vomiting: Denies RUQ Epigastric Pain: Denies Facial Edema: None Comments: pt. off monitor for lunch Pain Presence: None/Denies Datetime: 04/06/2019 13:01 Labor Evaluation Frequency: 0/hr Monitor Mode: External Heart Rate FHR Baseline Rate: 125 Monitor Mode: External US Variability: Moderate 6-25 bpm Accelerations: 15X15 Decelerations: None Datetime: 04/06/2019 12:39 Monitor Mode: External Datetime: 04/06/2019 12:25 Maternal Assessment Level of Consciousness: Keenly Alert, Responsive Headache: Denies Nausea/Vomiting: Denies RUQ Epigastric Pain: Denies Labor Evaluation Frequency: 0 Monitor Mode: External Resting Tone [place]: Relaxed Contraction Comments: none via toco Heart Rate FHR Baseline Rate: 125 Monitor Mode: External US Variability: Moderate 6-25 bpm Accelerations: 15X15 Decelerations: None Datetime: 04/06/2019 11:23 Stage of : Antepartum Maternal Assessment Level of Consciousness: Keenly Alert, Responsive Headache: Denies Blurred Vision: No Respiratory Effort: Unlabored Nausea/Vomiting: Denies RUQ Epigastric Pain: Denies Monitor Mode: External Heart Rate FHR Baseline Rate: 135 Monitor Mode: External US Variability: Moderate 6-25 bpm Accelerations: 15X15 Decelerations: None Datetime: 04/06/2019 10:52 Labor Evaluation Frequency: occassional Monitor Mode: External Quality: Mild Contraction Comments: pt. reports some cramping Heart Rate FHR Baseline Rate: 140 Monitor Mode: External US Variability: Moderate 6-25 bpm Accelerations: 15X15 Decelerations: None Datetime: 04/06/2019 10:34 Monitor Mode: External Resting Tone [place]: Relaxed Monitor Mode: External US Datetime: 04/06/2019 10:31 Stage of : Antepartum Pain Assessment Pain Scale: 2 Pain Presence: Intermittent Pain Type: Cramping Pain Location: Abdomen Pain Relief Measures: Comfort Measures Datetime: 04/06/2019 09:29 Monitor Mode: External Monitor Mode: External US Datetime: 04/06/2019 09:00 Labor Evaluation Frequency: 0/hr Monitor Mode: External Heart Rate FHR Baseline Rate: 135 Monitor Mode: External US Variability: Moderate 6-25 bpm Accelerations: 15X15 Decelerations: None Datetime: 04/06/2019 08:56 Labor Evaluation Frequency: 0/hr Monitor Mode: External Heart Rate FHR Baseline Rate: 140 Monitor Mode: External US Variability: Moderate 6-25 bpm Accelerations: 15X15 Decelerations: None Datetime: 04/06/2019 08:50 Maternal Assessment Level of Consciousness: Keenly Alert, Responsive Headache: Denies Blurred Vision: No Respiratory Effort: Unlabored Breath Sounds, Left: Clear and Equal Breath Sounds, Right: Clear and Equal Nausea/Vomiting: Denies RUQ Epigastric Pain: Denies Monitor Mode: External Resting Tone [place]: Relaxed Contraction Comments: abdomen soft and non tender to touch Pain Presence: None/Denies Datetime: 04/06/2019 07:36 Stage of : Antepartum Headache: Denies Blurred Vision: No Respiratory Effort: Unlabored Nausea/Vomiting: Denies RUQ Epigastric Pain: Denies Temperature Route: Oral Monitor Mode: External Resting Tone [place]: Relaxed Contraction Comments: pt. reports lower ligament pain and bilaterally flank pain but refuses need f or pain meds. toco adjusted. abdomen soft and non tender to touch Pain Presence: Constant Pain Type: Sharp Pain Location: Abdomen; Right Flank; Left Flank Datetime: 04/06/2019 06:56 Stage of : Antepartum Labor Evaluation Frequency: 0 Monitor Mode: External Resting Tone [place]: Relaxed Heart Rate FHR Baseline Rate: 135 Monitor Mode: External US FHR Baseline Changes: No Baseline Change Variability: Moderate 6-25 bpm Accelerations: 15X15 Decelerations: None Category: Category I Comments: points of loss of contact due to pt up to BR Datetime: 04/06/2019 06:00 Stage of : Antepartum Labor Evaluation Frequency: x1 Monitor Mode: External Duration (sec)2399: 50 Quality: Mild Resting Tone [place]: Relaxed Heart Rate FHR Baseline Rate: 135 Monitor Mode: External US FHR Baseline Changes: No Baseline Change Variability: Moderate 6-25 bpm Accelerations: 15X15 Decelerations: None Category: Category I Pain Assessment Pain Scale: 4 Pain Presence: Intermittent Pain Type: Contraction Pain Location: Abdomen Pain Relief Measures: Comfort Measures Datetime: 04/06/2019 05:30 Stage of : Antepartum Assessment Type: Admission Assessment Vaginal Bleeding: None Maternal Assessment Level of Consciousness: Keenly Alert, Responsive DTR's/Clonus: DTRs 2+; No Clonus Headache: Denies Blurred Vision: No Respiratory Effort: Unlabored; Regular Rhythm; Equal Expansion Breath Sounds, Left: Clear and Equal Breath Sounds, Right: Clear and Equal Nausea/Vomiting: Denies RUQ Epigastric Pain: Denies Lower Extremities Edema: None Degree: None Upper Extremities Edema: None Degree: None Facial Edema: None Fall Risk Assessment History of Falling: (0) No Secondary Diagnosis: (0) No Ambulatory Aid: (0) Bedrest/Nurse Assist IV Therapy: (20) Yes Gait: (0) Normal/Bedrest/Immobile Mental Status: (0) Oriented to Own Ability Fall Score: 20 Fall Risk Score Definition: No Risk: No action required Pain Assessment Pain Scale: 4 Pain Presence: Intermittent Pain Type: Contraction Pain Location: Abdomen Membrane Status: Intact Datetime: 04/06/2019 05:28 Time of Arrival: 04/06/2019 05:15 EGA: 34.4 Arrived By: Ambulatory Arrived From: Home Datetime: 04/06/2019 05:00 Respiratory Effort: Unlabored; Regular Rhythm; Equal Expansion Labor Evaluation Frequency: X4 Monitor Mode: External Duration (sec)2399: 60-80 Pattern: Normal: <= 5 Contractions in 10 Minutes Heart Rate FHR Baseline Rate: 130 Monitor Mode: External US Variability: Moderate 6-25 bpm Accelerations: 15X15 Decelerations: None Category: Category I Datetime: 04/06/2019 04:04 Pain Assessment Comments: PT STATES SHE HAS FELT ABOUT 5-6 UC'S SINCE SECOND DOSE OF TERBUTALINE WA S ADMINISTERED AND THAT HER PAIN IS LESS THAN IT WAS UPON ARRIVING TO UNIT. Datetime: 04/06/2019 04:00 Labor Evaluation Frequency: X3 Monitor Mode: External Duration (sec)2399: 70-80 Pattern: Normal: <= 5 Contractions in 10 Minutes Heart Rate FHR Baseline Rate: 120 Monitor Mode: External US Variability: Moderate 6-25 bpm Accelerations: 15X15 Decelerations: None Category: Category I Datetime: 04/06/2019 03:00 Labor Evaluation Frequency: IRREGULAR Monitor Mode: External Duration (sec)2399: 60-100 Pattern: Normal: <= 5 Contractions in 10 Minutes Heart Rate FHR Baseline Rate: 120 Monitor Mode: External US Variability: Moderate 6-25 bpm Accelerations: 15X15 Decelerations: None Category: Category I Datetime: 04/06/2019 02:00 Labor Evaluation Frequency: 3-4 Monitor Mode: External Duration (sec)2399: 60-100 Pattern: Normal: <= 5 Contractions in 10 Minutes Heart Rate FHR Baseline Rate: 125 Monitor Mode: External US Variability: Moderate 6-25 bpm Accelerations: 15X15 Decelerations: None Category: Category I Datetime: 04/06/2019 01:00 Labor Evaluation Frequency: 2.5-6 Monitor Mode: External Duration (sec)2399: 60-80 Pattern: Normal: <= 5 Contractions in 10 Minutes Heart Rate FHR Baseline Rate: 125 Monitor Mode: External US Variability: Moderate 6-25 bpm Accelerations: 15X15 Decelerations: None Datetime: 04/06/2019 00:56 Respiratory Effort: Unlabored; Regular Rhythm; Equal Expansion Pain Assessment Pain Scale: 0 Pain Presence: None/Denies Pain Type: N/A Pain Assessment Comments: pt states that she has not felt anymore uc's and was able to sleep for a bit Datetime: 04/06/2019 00:00 Labor Evaluation Frequency: 2-3 Monitor Mode: External Duration (sec)2399: 60-90 Pattern: Normal: <= 5 Contractions in 10 Minutes Heart Rate FHR Baseline Rate: 125 Monitor Mode: External US Variability: Moderate 6-25 bpm Accelerations: 15X15 Decelerations: None Datetime: 04/05/2019 23:00 Labor Evaluation Frequency: 3-10 Monitor Mode: External Duration (sec)2399: 70-120 Pattern: Normal: <= 5 Contractions in 10 Minutes Heart Rate FHR Baseline Rate: 125 Monitor Mode: External US Variability: Moderate 6-25 bpm Accelerations: 15X15 Decelerations: None Category: Category I Datetime: 04/05/2019 22:37 Vaginal Exam Dilatation (cms): 1.0 Effacement (%): 40 Station: -3 Vaginal Bleeding: None Cervix, Consistency: Firm Cervix, Position: Posterior Presentation 'A': Unable to Assess Datetime: 04/05/2019 22:36 EGA: 34.3 Datetime: 04/05/2019 22:22 Time of Arrival: 04/05/2019 22:04 EGA: 34.3 Arrived By: Ambulatory Arrived From: Home Chief Complaint: contractions and back pain Movement: Present Contractions: Regular Time Contractions Began: 04/05/2019 20:00 Contractions: q7min per pt Rupture of Membranes: Denies Vaginal Bleeding: None Vaginal Discharge: Present Recent Sexual Intercouse: Yes Abdominal Trauma: Not Applicable Patient Complaints: Contractions; Cramping; Back Pain Time Provider Notified: 04/05/2019 22:32 Provider Notified: HADADIAN Initial Plan: CEFM, SVE, UA, ANA Datetime: 04/05/2019 22:20 Stage of : OB Triage Assessment Type: Triage Maternal Assessment Level of Consciousness: Keenly Alert, Responsive DTR's/Clonus: DTRs 2+; No Clonus Headache: Denies Blurred Vision: No Respiratory Effort: Unlabored; Regular Rhythm; Equal Expansion Breath Sounds, Left: Clear and Equal Breath Sounds, Right: Clear and Equal Nausea/Vomiting: Denies RUQ Epigastric Pain: Denies Lower Extremities Edema: None Degree: None Upper Extremities Edema: None Degree: None Facial Edema: None Temperature Route: Oral Pain Assessment Pain Scale: 5 Pain Presence: Intermittent Pain Type: Contraction Pain Location: Abdomen; Back Pain Goal: 0 Pain Relief Measures: Comfort Measures
--- NOTE | 2019-04-21 22:59 | PN ---
Triage Information Date/Time April 21, 2019 Reason for visit: Uterine contractions Weeks of Gestation 36 weeks and 5 days /Para 4 para 2 Diabetes: none Hypertention: none Additional information 23-year-old G4, P3 with IUP at 36 weeks and 5 days presented with complaint of uterine contractions and small amount of white discharge. She denies any dysuria, frequency, malodorous vaginal discharge. Denies any leaking of fluid, vaginal bleeding or decreased movement. She denies any complication during course. Objective Vital signs are stable Heart Rate: 130's Contractions: 6-10 Minutes Apart Exam General appearance: Alert and oriented x4 does not appear to be in any acute distress Abdomen: Soft, gravid, fundal height consider gestational age NST: Category 1 Contractions seen every 5 to 8-minute UA negative Sterile speculum examination: Small amount of normal physiological vaginal discharge. ANA: 6.5 BPP: 8/8 Results/Medications Results 24 hrs Laboratory Tests Test 04/21/19 04:50 Urine Color YELLOW Urine Clarity SLIGHTLY CLOUDY A Urine pH 6.0 Urine Specific [place] 1.015 Urine Ketones NEGATIVE Urine Nitrite NEGATIVE Urine Bilirubin NEGATIVE Urine Urobilinogen NEGATIVE Urine Leukocyte Esterase NEGATIVE Urine Microscopic RBC 1 Urine Microscopic WBC 1 Urine Squamous Epithelial Cells FEW Urine Mucus FEW A Urine Hemoglobin NEGATIVE Urine Glucose NEGATIVE Urine Total Protein NEGATIVE Imaging Results PROCEDURE: US OB CLINICAL INDICATION: labor. Pain. TECHNIQUE: Multiple transabdominal sonographic images of the pelvis and gravid uterus were obtained. The images were reviewed on a PACS workstation. COMPARISON: April 08, 2019. FINDINGS: Gestation: Single intrauterine gestation. Cardiac activity: 128 beats per minute. Presentation: Cephalic Placenta: Location: Anterior Appearance: No previa or abruption. Amniotic Fluid: ANA = 6.5 cm Maximum volume pocket: 2.0 cm Biophysical Profile: Breathin Amniotic fluid volume: 2 Tone: 2 Movement: 2 Total score: 8/8 IMPRESSION: 1. Biophysical profile 8/8. 2. Decreased ANA of 6.5 cm. Disposition: Discharge Assessment/Plan IUP at 36 weeks and 5 days Contractions, dehydration, symptoms resolved after hydration and rest No evidence of UTI no evidence of labor Borderline low ANA Discussed with patient regarding hydration aggressively after discharge from the hospital and return to triage tomorrow after 24 hours for repeat ANA Patient verbalized understanding. All questions were answered She understands importance of this follow-up visit in 24 hours Strict labor precautions and kick count discussed with patient. Follow-up within 48 hours after discharge from the hospital with primary OB office discussed. All questions were answered to patient with satisfaction and patient agreed to comply with instructions ROOPA LANDA MD Apr 21, 2019 22:59
== END 2019-04-21 10:00 | disposition home or self-care (01) ==
LOC: OBT 04:15 → L-D 04:15 → OBT 10:00
PROVIDERS: ATTEND Obstetrics & Gynecology
DX: O62.9 Abnormality of forces of labor, unspecified (principal); Z3A.36 36 weeks gestation of pregnancy
CPT/HCPCS: 36415; 76818; 81001; 96360; 96372; J3105; J7120; Z7500; 81003; G0463

== ENCOUNTER 2019-04-22 12:10 | Outpatient (CLI) | payer MEDICAID ==
[~2019-04-22] VITALS: Ht 152.4 cm; Wt 67.3 kg
[2019-04-22 13:01] VITALS: Ht 152.4 cm; Wt 67.3 kg
[2019-04-22 13:03] VITALS: BP 105/56; PULSE 74; RESP 18
--- NOTE | 2019-04-22 16:32 | TRIAGE ---
OB Triage Datetime Report Generated by CPN: 04/22/2019 16:32 Datetime: 04/22/2019 15:28 Stage of : OB Triage Datetime: 04/22/2019 15:11 Frequency: 0 Monitor Mode: External Pattern: Normal: <= 5 Contractions in 10 Minutes Resting Tone [place]: Relaxed FHR Baseline Rate: 125 Monitor Mode: External US Variability: Moderate 6-25 bpm Accelerations: 10X10 Decelerations: None Category: Category I Pain Scale: 0 Pain Presence: None/Denies Pain Type: N/A Pain Goal: 3 Pain Relief Measures: Comfort Measures Datetime: 04/22/2019 14:00 Frequency: 3-5 Monitor Mode: External Duration (sec)2399: 30-50 Quality: Mild Pattern: Normal: <= 5 Contractions in 10 Minutes Resting Tone [place]: Relaxed FHR Baseline Rate: 135 Monitor Mode: External US Variability: Moderate 6-25 bpm Accelerations: 10X10 Decelerations: None Category: Category I Pain Scale: 0 Pain Presence: None/Denies Pain Type: N/A Pain Goal: 3 Pain Relief Measures: Comfort Measures Datetime: 04/22/2019 13:44 Stage of : OB Triage Datetime: 04/22/2019 12:43 Stage of : OB Triage Assessment Type: Triage Level of Consciousness: Keenly Alert, Responsive DTR's/Clonus: DTRs 2+; No Clonus Headache: Denies Blurred Vision: No Respiratory Effort: Unlabored; Regular Rhythm; Equal Expansion Breath Sounds, Left: Clear and Equal Breath Sounds, Right: Clear and Equal Nausea/Vomiting: Denies RUQ Epigastric Pain: Denies Facial Edema: None Temperature Route: Axillary History of Falling: (0) No Secondary Diagnosis: (0) No Ambulatory Aid: (0) Bedrest/Nurse Assist IV Therapy: (0) No Gait: (0) Normal/Bedrest/Immobile Mental Status: (0) Oriented to Own Ability Fall Score: 0 Fall Risk Score Definition: No Risk: No action required Frequency: X1 Monitor Mode: External Duration (sec)2399: 50 Pattern: Normal: <= 5 Contractions in 10 Minutes FHR Baseline Rate: 125 Monitor Mode: External US Variability: Moderate 6-25 bpm Accelerations: 10X10 Decelerations: None Pain Scale: 2 Pain Presence: Intermittent Pain Type: Cramping Pain Location: Perineum Pain Goal: 3 Pain Relief Measures: Comfort Measures Datetime: 04/22/2019 12:41 Time of Arrival: 04/22/2019 11:59 EGA: 36.6 Arrived By: Ambulatory Arrived From: Home Chief Complaint: C/O POSSIBLE LEAKING, PERINEAL PAIN, DENIES BLEEDING Movement: Decreased Contractions: Occasional Rupture of Membranes: Unsure Vaginal Bleeding: None Vaginal Discharge: Denies Recent Sexual Intercouse: Denies Abdominal Trauma: Not Applicable Patient Complaints: Cramping Time Provider Notified: 04/22/2019 13:45 Provider Notified: CHARAN Initial Plan: MONITOR, NITRAZINE, ROM PLUS, U/A C_S
--- NOTE | 2019-04-22 19:10 | PN ---
Triage Information Date/Time 04/22/1903/06/1905 Reason for visit: Oligohydramnios Weeks of Gestation 36w6d /Para A1 Diabetes: none Hypertention: none Objective Vital Signs Date Temp Pulse Resp B/P (MAP) Pulse Ox O2 O2 Flow FiO2 Time Delivery Rate 04/22/19 98.5 74 18 105/56 13:03 (72) Heart Rate: 150's Heart Rate Comments CAT I Contractions: >10 Minutes Apart Results/Medications Results 24 hrs Laboratory Tests Test 04/22/19 12:50 Urine Color STRAW Urine Clarity CLEAR Urine pH 6.0 Urine Specific [place] 1.002 L Urine Ketones NEGATIVE Urine Nitrite NEGATIVE Urine Bilirubin NEGATIVE Urine Urobilinogen NEGATIVE Urine Leukocyte Esterase TRACE A Urine Microscopic RBC 1 Urine Microscopic WBC 1 Urine Bacteria FEW A Urine Hemoglobin NEGATIVE Urine Glucose NEGATIVE Urine Total Protein NEGATIVE Membranes Rupture NEGATIVE Imaging Results BPP8/8 ANA 9.2 from 6.5 nitrazine equivocal, ROM plus neg Disposition: Discharge Assessment/Plan A IUP 36w6d oligohydramnios P f/u biwkly with her OB AMIE FARRAR MD Apr 22, 2019 19:10
== END 2019-04-22 15:55 | disposition home or self-care (01) ==
LOC: OBT 12:10 → L-D 12:11 → OBT 15:55
PROVIDERS: ATTEND Obstetrics & Gynecology
DX: O41.03X0 Oligohydramnios, third trimester, not applicable or unspecified (principal); Z3A.36 36 weeks gestation of pregnancy
CPT/HCPCS: 76818; 81001; 84112; 87086; Z7500; G0463

== ENCOUNTER 2019-04-26 17:02 | Outpatient (CLI) | payer MEDICAID ==
[~2019-04-26] VITALS: Ht 162.6 cm; Wt 62.7 kg
[2019-04-26 17:10] VITALS: Ht 162.6 cm; Wt 62.7 kg
--- NOTE | 2019-04-26 17:46 | PN ---
Triage Information Date/Time Reason for visit: Hx of Low ANA for NST BPp Weeks of Gestation 37+ /Para n/a Diabetes: none Hypertention: none Objective Heart Rate: 140's Contractions: None Disposition: Discharge Assessment/Plan BPP 07/28 [place] no ctxs Questions answered precautions discussed Follow up with provider MIKE SCANLON M.D. Apr 26, 2019 17:46
== END 2019-04-26 17:51 | disposition home or self-care (01) ==
LOC: OBT 17:02 → L-D 17:03 → OBT 17:51
PROVIDERS: ATTEND Obstetrics & Gynecology
DX: O41.93X0 Disorder of amniotic fluid and membranes, unspecified, third trimester, not applicable or unspecified (principal); Z3A.37 37 weeks gestation of pregnancy
CPT/HCPCS: 76818; Z7500; G0463

== ENCOUNTER 2019-05-11 10:56 | Outpatient (CLI) | payer MEDICAID ==
[~2019-05-11] VITALS: Ht 152.4 cm; Wt 62.3 kg
[2019-05-11 11:07] VITALS: BP 115/65; PULSE 101; Ht 152.4 cm; Wt 62.3 kg
--- NOTE | 2019-05-11 12:04 | TRIAGE ---
OB Triage Datetime Report Generated by CPN: 05/11/2019 12:04 Datetime: 05/11/2019 11:04 Assessment Type: Triage Maternal Assessment Level of Consciousness: Keenly Alert, Responsive DTR's/Clonus: DTRs 2+; No Clonus Headache: Denies Blurred Vision: No Respiratory Effort: Unlabored; Regular Rhythm; Equal Expansion Breath Sounds, Left: Clear and Equal Breath Sounds, Right: Clear and Equal Nausea/Vomiting: Denies RUQ Epigastric Pain: Denies Lower Extremities Edema: None Degree: None Upper Extremities Edema: None Degree: None Facial Edema: None Fall Risk Assessment History of Falling: (0) No Secondary Diagnosis: (0) No Ambulatory Aid: (0) Bedrest/Nurse Assist IV Therapy: (0) No Gait: (0) Normal/Bedrest/Immobile Mental Status: (0) Oriented to Own Ability Fall Score: 0 Fall Risk Score Definition: No Risk: No action required Datetime: 05/11/2019 11:02 Monitor Mode: External Monitor Mode: External US Datetime: 05/11/2019 11:00 Time of Arrival: 05/11/2019 10:51 EGA: 38.5 Arrived By: Ambulatory; Wheelchair Arrived From: Home Chief Complaint: PT. HERE C/O DIZZINESS AND DFM Movement: Present Contractions: Denies/Absent Rupture of Membranes: Denies Vaginal Bleeding: None Vaginal Discharge: Denies Recent Sexual Intercouse: Denies Abdominal Trauma: Not Applicable Patient Complaints: None Time Provider Notified: 05/11/2019 11:10 Provider Notified: HADADIAN Initial Plan: BPP/NST Datetime: 05/03/2019 13:10 Maternal Assessment Level of Consciousness: Keenly Alert, Responsive DTR's/Clonus: DTRs 1+ Headache: Denies Blurred Vision: No Respiratory Effort: Unlabored Breath Sounds, Left: Clear and Equal Breath Sounds, Right: Clear and Equal Nausea/Vomiting: Denies RUQ Epigastric Pain: Denies Facial Edema: None Labor Evaluation Frequency: 2-5 Monitor Mode: External Duration (sec)2399: 40-80 Quality: Mild Pattern: Normal: <= 5 Contractions in 10 Minutes Resting Tone [place]: Relaxed Heart Rate FHR Baseline Rate: 125 Monitor Mode: External US Variability: Moderate 6-25 bpm Accelerations: 15X15 Decelerations: None Category: Category I Pain Assessment Pain Scale: 4 Pain Presence: Intermittent Pain Type: Cramping Pain Location: Back Pain Goal: 3 Membrane Status: Intact Datetime: 05/03/2019 12:37 Vaginal Exam Dilatation (cms): 1.0 Effacement (%): 50 Station: -3 Exam By: JACQUI LEDESMA Vaginal Bleeding: None Cervix, Consistency: Soft Cervix, Position: Midposition Presentation 'A': Cephalic Datetime: 05/03/2019 09:28 EGA: 38.3 Datetime: 04/26/2019 17:05 Fall Score: 0 Fall Risk Score Definition: No Risk: No action required Datetime: 04/26/2019 16:56 EGA: 37.3 Datetime: 04/22/2019 12:43 Fall Score: 0 Fall Risk Score Definition: No Risk: No action required Datetime: 04/22/2019 12:41 EGA: 36.6 Datetime: 04/21/2019 04:46 EGA: 36.5 Datetime: 04/21/2019 04:35 Fall Score: 0 Fall Risk Score Definition: No Risk: No action required Datetime: 04/07/2019 20:21 Fall Score: 0 Fall Risk Score Definition: No Risk: No action required Datetime: 04/07/2019 07:30 Fall Score: 20 Fall Risk Score Definition: No Risk: No action required Datetime: 04/06/2019 20:16 Fall Score: 20 Fall Risk Score Definition: No Risk: No action required Datetime: 04/06/2019 05:30 Fall Score: 20 Fall Risk Score Definition: No Risk: No action required Datetime: 04/06/2019 05:28 EGA: 34.4 Datetime: 04/05/2019 22:36 EGA: 34.3 Datetime: 04/05/2019 22:22 EGA: 34.3
--- NOTE | 2019-05-11 12:08 | PN ---
Triage Information Date/Time Reason for visit: DFM Weeks of Gestation 38 weeks and 5 days /Para -0-1-2 Diabetes: none Hypertention: none Objective Vital Signs Date Temp Pulse Resp B/P (MAP) Pulse Ox O2 O2 Flow FiO2 Time Delivery Rate 05/11/19 97.6 101 115/65 Room Air 11:07 (82) Heart Rate: 130's Contractions: None Disposition: Discharge Assessment/Plan 23 years old 4 para 2-0-1-2 with single intrauterine at 38 weeks and 5 days complaining of decreased movement. She denies nausea, vomiting, shortness of breath, chest pain, headache, visual changes, vaginal bl eeding or LOF. -FHR: No sign of metabolic acidosis- Category I -Contractions: None -Ultrasound performed: Normal ANA, BPP 8 out of 8 -Symptoms and sign of labor, preeclampsia, kick count discussed with patient, she voiced understanding. All of her questions answered. -Patient was discharged home in stable condition with the appropriate discharge instructions provided. I would like patient to have close follow-up with her primary physician or outpatient clinic in 1-2 days or return to triage for worsening symptoms or any other urgent concerns. JOSE MIGUEL DIAZ May 11, 2019 12:08
== END 2019-05-11 12:20 | disposition home or self-care (01) ==
LOC: OBT 10:56 → L-D 10:58 → OBT 12:20
PROVIDERS: ATTEND Obstetrics & Gynecology
DX: O36.8130 Decreased fetal movements, third trimester, not applicable or unspecified (principal); Z3A.38 38 weeks gestation of pregnancy
CPT/HCPCS: 76818; Z7500; G0463

== ENCOUNTER 2019-05-16 23:05 | Inpatient (IN) | payer MEDICAID ==
[~2019-05-16] VITALS: Ht 153.7 cm; Wt 64.3 kg
[2019-05-16 23:58] VITALS: BP 104/56; PULSE 78; RESP 18
[2019-05-17] MEDS ORDERED: AMPICILLIN 2 GM/NS (PMX) 100 ML IV ONE
[2019-05-17] MEDS ORDERED: IBUPROFEN 600 MG TAB PO PRN
[2019-05-17] MEDS ORDERED: BUTORPHANOL 2 MG INJ IV PRN ×2
[2019-05-17] MEDS ORDERED: LIDOCAINE 1% (MPF) 30 ML INJ INJ PRN
--- NOTE | 2019-05-17 00:05 | TRIAGE ---
OB Triage Datetime Report Generated by CPN: 05/17/2019 00:05 Datetime: 05/16/2019 23:30 Stage of : OB Triage Time of Arrival: 05/16/2019 23:00 EGA: 39.3 Arrived By: Wheelchair Arrived From: Home Chief Complaint: c/o ucs and discharge since 0130. States has not been to clinic in 2 months d /t problems with Medical Movement: Present Contractions: Regular Time Contractions Began: 05/16/2019 01:30 Contractions: q5-10 Rupture of Membranes: Denies Vaginal Bleeding: Scant Vaginal Discharge: Present Recent Sexual Intercouse: Denies Abdominal Trauma: Not Applicable Patient Complaints: Contractions Time Provider Notified: 05/16/2019 23:30 Provider Notified: Dr Frey Initial Plan: EFM,SVE Datetime: 05/16/2019 23:26 Stage of : OB Triage Maternal Assessment Level of Consciousness: Keenly Alert, Responsive Headache: Denies Blurred Vision: No Nausea/Vomiting: Denies RUQ Epigastric Pain: Denies Facial Edema: None Labor Evaluation Frequency: placed Monitor Mode: External Resting Tone [place]: Relaxed Heart Rate FHR Baseline Rate: 130 Monitor Mode: External US Pain Assessment Pain Scale: 6 Pain Presence: Intermittent Pain Type: Contraction Pain Location: Abdomen Vaginal Exam Dilatation (cms): 4.0 Effacement (%): 60 Station: -2 Exam By: E Wayne Membrane Status: Intact Vaginal Bleeding: Scant Cervix, Consistency: Soft Cervix, Position: Posterior Presentation 'A': Cephalic Datetime: 05/11/2019 11:34 Stage of : OB Triage Maternal Assessment Level of Consciousness: Keenly Alert, Responsive Labor Evaluation Frequency: OCCASIONAL Monitor Mode: External Duration (sec)2399: 70-80 Quality: Mild Resting Tone [place]: Relaxed Heart Rate FHR Baseline Rate: 135 Monitor Mode: External US Variability: Moderate 6-25 bpm Accelerations: 15X15 Decelerations: None Category: Category I Pain Assessment Pain Scale: 0 Pain Goal: 3 Membrane Status: Intact Vaginal Bleeding: None Datetime: 05/11/2019 11:04 Fall Risk Assessment Fall Score: 0 Fall Risk Score Definition: No Risk: No action required Datetime: 05/11/2019 11:00 EGA: 38.5 Datetime: 05/03/2019 09:28 EGA: 38.3 Datetime: 04/26/2019 17:05 Fall Risk Assessment Fall Score: 0 Fall Risk Score Definition: No Risk: No action required Datetime: 04/26/2019 16:56 EGA: 37.3 Datetime: 04/22/2019 12:43 Fall Risk Assessment Fall Score: 0 Fall Risk Score Definition: No Risk: No action required Datetime: 04/22/2019 12:41 EGA: 36.6 Datetime: 04/21/2019 04:46 EGA: 36.5 Datetime: 04/21/2019 04:35 Fall Risk Assessment Fall Score: 0 Fall Risk Score Definition: No Risk: No action required Datetime: 04/07/2019 20:21 Fall Risk Assessment Fall Score: 0 Fall Risk Score Definition: No Risk: No action required Datetime: 04/07/2019 07:30 Fall Risk Assessment Fall Score: 20 Fall Risk Score Definition: No Risk: No action required Datetime: 04/06/2019 20:16 Fall Risk Assessment Fall Score: 20 Fall Risk Score Definition: No Risk: No action required Datetime: 04/06/2019 05:30 Fall Risk Assessment Fall Score: 20 Fall Risk Score Definition: No Risk: No action required Datetime: 04/06/2019 05:28 EGA: 34.4 Datetime: 04/05/2019 22:36 EGA: 34.3 Datetime: 04/05/2019 22:22 EGA: 34.3
--- NOTE | 2019-05-17 00:14 | HP ---
Date/Time of Note Date/Time of Note DATE: 05/17/19 TIME: 00:07 OB - History Hx of Present Free Text/Dictation 23 y.o. A1 with an IUP at 39w 4d with a history of initial care but none since 03/22 due to problems with her MediCal and she now comes in active labor with an initial exam of 60% 4 cm/-2 station and was admitted. Chief Complaint: Labor Estimated Due Date: May 20, 2019 : 4 Para: 2 Spontaneous : 1 Care: Limited Care Ultrasounds: Normal mid trimester US Obstetrical Complications: None Medical Complications: None Past Family/Social History * Past Medical, Surgical, Family and Obstetric Histories reviewed from chart, up until 03/22.. Blood Type: O+ Rubella: immune RPR/VDRL: Negative GBS Status: Unknown HBsAG: Negative OB Admission Exam Vital Signs Vital Signs Vital Signs Date Temp Pulse Resp B/P (MAP) Pulse Ox O2 O2 Flow FiO2 Time Delivery Rate 05/16/19 98.2 78 18 104/56 Room Air 23:58 (72) Physical Exam HEENT: WNL Abdomen: WNL Extremities: Normal Reflexes: Normal Cervical Dilatation: 4cm Effacement: Other (60%) Membranes: Intact Heart Rate: 120's Accelerations: Accelerations Present Decelerations: No Decelerations Varibility: Moderate Contractions on Admission: < 5 Minutes Apart Intensity: Moderate OB Assessment/Plan Reason for admission: active labor Plan: Expectant Management Other plan: Augmenation as needed. GBS prophylaxis. APOLINAR BELTRAN MD May 17, 2019 00:14
[2019-05-17] MEDS: LACTATED RINGER'S 1,000 ML IV SCH ×2 (00:29→04:04)
[2019-05-17] MEDS ORDERED: MINERAL OIL LIGHT 10 ML VIAL TOP PRN (00:30)
[2019-05-17] MEDS: LACTATED RINGER'S 1,000 ML IV PRN ×2 (01:58→03:16)
[2019-05-17] MEDS ORDERED: FENTAnyl 2MCG/ML-ROPIV 0.2% 100 ML ONE (02:44)
[2019-05-17] MEDS ORDERED: AMPICILLIN 1 GM/NS (PMX) 50 ML IV SCH (04:00)
--- NOTE | 2019-05-17 04:06 | PREAC ---
Date/Time of Note Date/Time of Note DATE: 05/17/19 TIME: 04:04 Anesthesia Eval and Record Evaluation Time Pre-Procedure Interview DATE: 05/17/19 TIME: 04:04 Age 23 Sex female NPO: 8 hrs Preoperative diagnosis IUP Planned procedure L&D Epidural Past Medical History Past Medical History: Includes GI: Obesity : : Surgery & Anesthesia Issues No known issue Meds Anticoagulation: No Beta Tom within 24 hr: No Reason Beta Tom not given: Pt. not on B-Tom Reported Medications Vit No.124/Iron/FA ( Vitamin Tablet) 1 Each Tablet, 1 EACH PO, TAB 04/05/19 Current Medications Lactated Ringer's 1,000 ml @ 125 mls/hr Q8H IV Last administered on 05/17/19at 00:29; Admin Dose 125 MLS/HR; Start 05/16/19 at 23:54 Ampicillin 50 ml @ 100 mls/hr Q4H IV ; Start 05/17/19 at 04:00 Butorphanol Tartrate (Stadol) 1 mg Q2H PRN IV .PAIN SCALE 1-5; Start 05/17/19 at 00:00 Butorphanol Tartrate (Stadol) 2 mg Q2H PRN IV .PAIN SCALE 6-10; Start 05/17/19 at 00:00 Lidocaine (Xylocaine 1% (Mpf)) 30 ml ONCE PRN INJ .EPISIOTOMY; Start 05/17/19 at 00:00 Oxytocin/Lactated Ringer's 500 ml @ 500 mls/hr ONCE POST IV ; Start 05/17/19 at 00:00 Oxytocin/Lactated Ringer's 500 ml @ 125 mls/hr POST IV ; Start 05/17/19 at 00:00 Ibuprofen (Motrin) 600 mg ONCE PRN PO .PAIN 1-5; Start 05/17/19 at 00:00 Lactated Ringer's 1,000 ml @ 2,000 mls/hr Q30M PRN IV .ANESTHESIA Last administered on 05/17/19at 03:16; Admin Dose 2,000 MLS/HR; Start 05/16/19 at 23:54 Oxytocin/Lactated Ringer's 500 ml @ 0 mls/hr ONCE PRN IV .VAGINAL BLEEDING; Start 05/17/19 at 00:00 Methylergonovine Maleate (Methergine) 0.2 mg ONCE PRN IM .VAGINAL BLEEDING; Start 05/17/19 at 00:00 Carboprost Tromethamine (Hemabate) 250 mcg ONCE PRN IM .VAGINAL BLEEDING; Start 05/17/19 at 00:00 Misoprostol (Cytotec) 1,000 mcg ONCE PRN [place] .VAGINAL BLEEDING; Start 05/17/19 at 00:00 Oxytocin/Lactated Ringer's 500 ml @ 0 mls/hr FOR AUGMENTATION IV ; Start 05/17/19 at 00:00 Mineral Oil (Muri-Lube) ONCE PRN TOP LABOR INDUCTION; Start 05/17/19 at 00:30; Stop 05/18/19 at 00:29 Meds reviewed: Yes Allergies Coded Allergies: No Known Allergy (Unverified , 05/16/19) Allergies Reviewed: Yes Labs/Studies Labs Reviewed: Reviewed by anesthesiologist Result Diagram: 05/16/19 0025 test: Positive Studies: ECG Pre-procedure Exam Last vitals Vital Signs Date Temp Pulse Resp B/P (MAP) Pulse Ox O2 O2 Flow FiO2 Time Delivery Rate 05/16/19 98.2 78 18 104/56 Room Air 23:58 (72) Airway: Adequate mouth opening, Adequate thyromental dist Mallampati: Mallampati II Teeth: Normal Lung: Normal Heart: Normal ASA Physical Status ASA physical status: 2 Emergency: None Planned Anesthetic Neuraxial: Epidural Planned Pain Management Parenteral pain med Pre-operative Attestations Prior to commencing anesthesia and surgery, the patient was re-evaluated, there was verification of: *The patient's identity *The results of appropriate recent lab work and preoperative vital signs *The above evaluation not changing prior to induction *Anesthetic plan, risk benefits, alternative and complications discussed with patient/family; questions answered; patient/family understands, accepts and wishes to proceed. ATA RAMIREZ MD May 17, 2019 04:06
[2019-05-17] MEDS ORDERED: FENTAnyl 2MCG/ML-ROPIV 0.2% 100 ML BAG EPI SCH (04:30)
[2019-05-17] MEDS ORDERED: NALOXONE (0.4 MG/ML) INJ IV PRN (04:30)
[2019-05-17] MEDS ORDERED: DIPHENHYDRAMINE 50 MG INJ IV PRN (04:30)
[2019-05-17] MEDS ORDERED: ONDANSETRON 4 MG INJ IV PRN (04:30)
[2019-05-17] MEDS ORDERED: OXYTOCIN 30 UNITS/LR 500 ML IV SCH ×4 (05:00)
[2019-05-17] MEDS ORDERED: MISOPROSTOL 200 MCG TAB PR PRN ×2 (05:00)
[2019-05-17] MEDS ORDERED: OXYTOCIN 30 UNITS/LR 500 ML IV PRN ×2 (05:00)
[2019-05-17] MEDS ORDERED: METHYLERGONOVINE 0.2 MG INJ IM PRN ×2 (05:00)
[2019-05-17] MEDS ORDERED: HYDROCODONE/APAP (5/325) TAB PO PRN (05:00)
[2019-05-17] MEDS ORDERED: LANOLIN HPA 1 PKT TOP PRN (05:00)
[2019-05-17] MEDS ORDERED: LACTATED RINGER'S 1,000 ML IV* SCH (05:00)
[2019-05-17] MEDS ORDERED: CARBOPROST 250 MCG INJ IM PRN ×2 (05:00)
--- NOTE | 2019-05-17 05:00 | LDN ---
Date/Time of Note Date/Time of Note DATE: 05/17/19 TIME: 04:58 Delivery Summary of a viable baby boy weighing 3080 grams or 6# 13 oz, 20.5" long, and with Apgars of 8/9. Weeks of Gestation 39w 4d Placenta Delivered: Spontaneously Meconium: none Episiotomy: No Perineal laceration: 0 Anesthesia type: Epidural Estimated blood loss: 150 Sponge & Needle done & correct: Yes All needle counts correct: Yes Any foreign bodies felt in the: No (vagina) Infant Delivery Information Sex Infant Sex: male Apgars 1 Minute: 8 5 Minute: 9 Suctioning Nose & mouth suctioned at michael: Yes Delee suction performed: Yes Umbilical Cord Umbilical cord with: 3 Vessels Cord presentations: no nuchal cord (but there was a body cord x 1) Cord Blood was obtained: Yes Mother & Baby Disposition Disposition Mom & Baby to Maternity; Good: Yes Baby to NICU: No APOLINAR BELTRAN MD May 17, 2019 05:00
[2019-05-17 09:15] VITALS: BP 107/55; PULSE 63; RESP 18
[2019-05-17] MEDS: IBUPROFEN 600 MG TAB PO SCH ×4 (09:34→23:40)
[2019-05-17 16:00] VITALS: BP 98/53; PULSE 77; RESP 17
[2019-05-17 19:40] VITALS: BP 98/52; PULSE 77; RESP 18
[2019-05-17 23:45] VITALS: BP 101/59; PULSE 79; RESP 18
[2019-05-18 04:50] VITALS: BP 96/54; PULSE 60; RESP 18
[2019-05-18] MEDS: IBUPROFEN 600 MG TAB PO SCH ×3 (05:44→17:31)
[2019-05-18 08:00] VITALS: BP 102/50; PULSE 65; RESP 16
--- NOTE | 2019-05-18 08:20 | PAC ---
Date/Time of Note Date/Time of Note DATE: 05/18/19 TIME: 08:20 Post-Anesthesia Notes Post-Anesthesia Note Last documented vital signs Vital Signs Date Temp Pulse Resp B/P (MAP) Pulse Ox O2 O2 Flow FiO2 Time Delivery Rate 05/18/19 98.0 60 18 96/54 (68) Room Air 04:50 Activity: WNL Respiratory function: WNL Cardiovascular function: WNL Mental status: Baseline Pain reasonably controlled: Yes Hydration appropriate: Yes Nausea/Vomiting absent: Yes Comments BP;112/56, P;78, Spo2:100%, T:98,9 ATA RAMIREZ MD May 18, 2019 08:20
[2019-05-18 15:45] VITALS: BP 106/51; PULSE 71; RESP 16
--- NOTE | 2019-05-18 18:16 | PN ---
Date/Time of Note Date/Time of Note DATE: 05/18/19 TIME: 18:12 OB Subjective Subjective Subjective PPD# 1 Patient is doing well. She denies nausea, vomiting, shortness of breath, chest pain, headache. She has been ambulating without difficulty, tolerating regular diet. Pain is well controlled on current medications OB Objective Objective Objective VS - Last 72 Hours, by Label Date Temp Pulse Resp B/P (MAP) Pulse Ox O2 O2 Flow FiO2 Time Delivery Rate 05/18/19 98.4 71 16 106/51 Room Air 15:45 (69) 05/18/19 98.2 65 16 102/50 Room Air 08:00 (67) 05/18/19 98.0 60 18 96/54 (68) Room Air 04:50 05/17/19 98.2 79 18 101/59 Room Air 23:45 (73) 05/17/19 98.3 77 18 98/52 (67) Room Air 19:40 05/17/19 98.4 77 17 98/53 (68) Room Air 16:00 05/17/19 98.0 63 18 107/55 Room Air 09:15 (72) 05/16/19 98.2 78 18 104/56 Room Air 23:58 (72) General: AAO X 3, comfortable, NAD, appropriate mood and affect. ABD: +BS. Soft, non-tender. Uterus 2 cm below umbilicus Flank: No CVA tenderness (B/L) LE: Mild edema. No clubbing, cyanosis, thigh or calf tenderness (B/L). Homans 'sign is negative OB Assessment/Plan Other plan: 23 years old -0-1-3 s/p normal vaginal delivery at 39 weeks and 5 days. PPD#1 - AF, VSS - Contraception methods with R/B/A/FR discussed - Hemoglobin 11.6 after delivery JOSE MIGUEL DIAZ May 18, 2019 18:16
[2019-05-18 20:45] VITALS: BP 111/51; PULSE 77; RESP 17
[2019-05-19] MEDS: IBUPROFEN 600 MG TAB PO SCH ×3 (00:17→13:14)
[2019-05-19 04:00] VITALS: BP 108/53; PULSE 63; RESP 19
[2019-05-19 08:00] VITALS: BP 99/55; PULSE 73; RESP 19
[2019-05-19] MEDS ORDERED: DIPHTH/TET/ACEL PERTUSS (ADULT) 0.5 ML VIAL IM* ONE (09:00)
--- NOTE | 2019-05-19 16:20 | PN ---
Date/Time of Note Date/Time of Note DATE: 05/19/19 TIME: 16:20 OB Subjective Subjective Subjective Breast-feeding. Urinated. Reports decreased vaginal bleeding. Denies any ot her complaint. Denies any shortness of breath, chest pain, dizziness, lightheadedness, OB Objective Objective Objective General appearance: Alert and oriented x4 does not appear to be in any acute distress Abdomen: Soft, fundus firm palpable nontender 2 to 3 cm below the umbilicus Breast: No evidence of engorgement of mastitis Extremities: No calf tenderness, no click no edema no cord palpable, negative Homans sign VS - Last 72 Hours, by Label Date Temp Pulse Resp B/P (MAP) Pulse Ox O2 O2 Flow FiO2 Time Delivery Rate 05/19/19 98.1 73 19 99/55 (70) Room Air 08:00 05/19/19 97.9 63 19 108/53 Room Air 04:00 (71) 05/18/19 98.1 77 17 111/51 Room Air 20:45 (71) 05/18/19 98.4 71 16 106/51 Room Air 15:45 (69) 05/18/19 98.2 65 16 102/50 Room Air 08:00 (67) 05/18/19 98.0 60 18 96/54 (68) Room Air 04:50 05/17/19 98.2 79 18 101/59 Room Air 23:45 (73) 05/17/19 98.3 77 18 98/52 (67) Room Air 19:40 05/17/19 98.4 77 17 98/53 (68) Room Air 16:00 05/17/19 98.0 63 18 107/55 Room Air 09:15 (72) 05/16/19 98.2 78 18 104/56 Room Air 23:58 (72) OB Assessment/Plan Other Assessment: PPD #2. s/p Doing well DC home ROOPA LANDA MD May 19, 2019 16:20
--- NOTE | 2019-05-19 17:33 | DS ---
Date/Time of Note Date/Time of Note DATE: 05/19/19 TIME: 17:33 Discharge Summary Admission/Discharge Info Admit Date/Time May 16, 2019 at 23:30 Discharge Date/Time May 19, 2019 at 14:51 Discharge Diagnosis s/p Patient Condition: Good Consults None Procedures Hx of Present Illness 23 y.o. A1 with an IUP at 39w 4d with a history of initial care but none since 03/22 due to problems with her MediCal comes in active labor with an initial exam of 60% 4 cm/-2 station and was admitted.She progessed well. She delivered Spontanesouly. of a viable baby boy weighing 3080 grams or 6# 13 oz, 20.5" long, and with Apgars of 8/9. ON PPD #2 patient was noted to be stable enough to be discharged home. She was ambulated. Breast-feeding. Vaginal bleeding was minimal. Denied any symptoms. She was advised to have a follow-up in 6 is with office or sooner as needed. Hospital Course Uncomplicated Home Meds Reported Medications Vit No.124/Iron/FA ( Vitamin Tablet) 1 Each Tablet, 1 EACH PO, TAB 04/05/19 Follow-up Plan 6 weeks post with the office Primary Care Provider Care Physician No Primary Time spent on discharge: < 30 minutes ROOPA LANDA MD May 19, 2019 17:33
== END 2019-05-19 14:51 | disposition home or self-care (01) | DRG 807 ==
LOC: OBT 23:05 → L-D 23:05 → OBT 23:30 → L-D 23:30 → PP1 05-17 09:47
PROVIDERS: ADMIT Obstetrics & Gynecology; ATTEND Obstetrics & Gynecology
PROC: 10E0XZZ Delivery of Products of Conception, External Approach (ICD-10-PCS; principal; 2019-05-17)
PROC: 3E033VJ Introduction of Other Hormone into Peripheral Vein, Percutaneous Approach (ICD-10-PCS; 2019-05-17)
DX: O69.89X0 Labor and delivery complicated by other cord complications, not applicable or unspecified (principal); Z37.0 Single live birth; Z3A.39 39 weeks gestation of pregnancy
CPT/HCPCS: 62322; 80307; 85025; 85610; 85730; 86592; 86850; 86900; 86901; 87340; 99464; G0463; J0290; J2590; J3010; J7120